=== PATIENT | male | born 1975 | race Caucasian/White ===

== ENCOUNTER 2023-11-10 19:11 | Emergency (ER) | payer OTHER ==
[~2023-11-10] VITALS: Ht 142.2 cm; Wt 59.0 kg
[2023-11-10 19:18] VITALS: BP 123/83; PULSE 84; RESP 18; TEMP 98.2; O2SAT 98
[2023-11-10] MEDS ORDERED: MORPHINE SULFATE 4 MG/ML SYR IM ONE (19:50)
[2023-11-10] MEDS ORDERED: ACET-10509 PO (22:19)
[2023-11-10] MEDS ORDERED: IBUP-2213 PO (22:19)
[2023-11-10] MEDS ORDERED: LID5T TP (22:21)
== END 2023-11-10 23:30 | disposition home or self-care (01) ==
LOC: MED 19:11
DX: S70.01XA Contusion of right hip, initial encounter (principal); S09.90XA Unspecified injury of head, initial encounter; F10.129 Alcohol abuse with intoxication, unspecified; Y90.9 Presence of alcohol in blood, level not specified; W18.30XA Fall on same level, unspecified, initial encounter; Y93.89 Activity, other specified; Y92.89 Other specified places as the place of occurrence of the external cause; Y99.8 Other external cause status
CPT/HCPCS: 70450; 72125; 72170; 96372; 99285; J2270